=== PATIENT | male | born 1990 | race Caucasian/White ===

== ENCOUNTER 2023-11-27 23:38 | Emergency (ER) | payer OTHER ==
[~2023-11-27] VITALS: Ht 170.2 cm; Wt 85.0 kg
[2023-11-27] MEDS ORDERED: CYCLOBENZAPRINE HCL 10 MG HOME.PACK PO ONE (23:45)
[2023-11-27] MEDS ORDERED: KETOROLAC TROMETHAMINE 60 MG/2 ML VIAL IM ONE (23:45)
[2023-11-27] MEDS ORDERED: HYDROXYZINE HCL50 MG PO (23:56)
[2023-11-27] MEDS ORDERED: TRAZODONE HCL50 MG PO (23:56)
[2023-11-27] MEDS ORDERED: MELATONIN5 M2 PO (23:57)
[2023-11-27] MEDS ORDERED: PRAZOSIN HCL5 MG PO (23:57)
[2023-11-27] MEDS ORDERED: ZOLOFT100 MG PO (23:57)
[2023-11-28] MEDS ORDERED: CYCLOBENZAPRINE HCL 10 MG TAB PO ONE (00:15)
[2023-11-28] MEDS ORDERED: HYDROCODON-ACE1 EA10 PO (02:12)
[2023-11-28] MEDS ORDERED: HYDROCODONE BIT/ACETAMINOPHEN 5/325 MG 1 TAB HOME.PACK PO ONE (02:15)
[2023-11-28 02:37] VITALS: BP 124/69
== END 2023-11-28 02:43 | disposition home or self-care (01) ==
LOC: ED 23:38
DX: S76.111A Strain of right quadriceps muscle, fascia and tendon, initial encounter (principal); S70.11XA Contusion of right thigh, initial encounter; Z79.899 Other long term (current) drug therapy; X50.1XXA Overexertion from prolonged static or awkward postures, initial encounter; Y93.67 Activity, basketball
CPT/HCPCS: 76882; 96372; 99284-25; A9270; J1885

== ENCOUNTER 2024-01-21 10:53 | Emergency (ER) | payer OTHER ==
[~2024-01-21] VITALS: Ht 170.2 cm; Wt 89.4 kg
[~2024-01-21 10:53] MED LIST: HYDROCODON-ACE1 EA10 PO; HYDROXYZINE HCL50 MG PO; MELATONIN5 M2 PO; PRAZOSIN HCL5 MG PO; TRAZODONE HCL50 MG PO; ZOLOFT100 MG PO
[2024-01-21] MEDS ORDERED: VITAMIN D250 MCG PO (11:37)
[2024-01-21] MEDS ORDERED: COLACE CLEAR50 MG PO (11:37)
[2024-01-21] MEDS ORDERED: TRAMADOL HCL50 MG PO (11:38)
[2024-01-21] MEDS ORDERED: BACLOFEN20 MG PO (11:39)
[2024-01-21] MEDS ORDERED: PAIN RELIEF500 M1 PO (11:40)
[2024-01-21] MEDS ORDERED: OXYCODONE/APAP 5/325 TAB PO ONE (12:30)
[2024-01-21] MEDS ORDERED: PERCOCET 5-3251 EACH PO (14:38)
[2024-01-21 14:49] VITALS: BP 113/88
== END 2024-01-21 14:50 | disposition other institution, planned readmission (95) ==
LOC: ED 10:53
DX: M61.051 Myositis ossificans traumatica, right thigh (principal); Z79.899 Other long term (current) drug therapy
CPT/HCPCS: 93971; 99284-25